=== PATIENT | female | born 1950 | race African-American/Black ===

== ENCOUNTER 2016-07-10 12:04 | Emergency (ER) | payer MEDICARE, OTHER ==
[~2016-07-10] VITALS: Ht 162.6 cm; Wt 52.2 kg
[~2016-07-10 12:04] MED LIST: IBUPROFEN200 M2 ORAL; METHADONE HCL5 MG PO; NORCO 5-325 TA1 EACH ORAL; OMEPRAZOLE20 M2 ORAL; TRAMADOL HCL50 MG ORAL; VERAPAMIL ER240 MG ORAL
--- NOTE | 2016-07-10 13:03 | Emergency Room Report ---
History of Present Illness General Chief Complaint: Abdominal Pain Source: Patient, Medical Record (NARAYAN NAYLOR D.O.) Present Illness HPI Patient presents with complaints of right flank pain that started possibly 7 days ago Now several days ago she reports of the pain on the right side has resolved however patient felt discomfort in the left flank area Denies any dysuria frequency denies any fevers or chills denies any fall or trauma while attending to sit down the patient has increased discomfort standing resolve some of the pain (NARAYAN NAYLOR D.O.) Allergies: Coded Allergies: No Known Allergies (Verified , 04/19/07) Patient History Past Medical History: see triage record Pertinent Family History: none Reviewed Nursing Documentation: PMH: Agreed, PSxH: Agreed (NARAYAN NAYLOR D.O.) Nursing Documentation-PMH Hx Hypertension: Yes Hx Asthma: Yes Hx Cancer: No Hx Gastrointestinal Problems: No Hx Neurological Problems: No (NARAYAN NAYLOR D.O.) Review of Systems All Other Systems: negative except mentioned in HPI (NARAYNA NAYLOR D.O.) Physical Exam Vital Signs Date Time Temp Pulse Resp B/P Pulse Ox O2 Delivery O2 Flow Rate FiO2 07/10/16 12:32 98.2 68 16 130/86 99 Room Air Sp02 EP Interpretation: reviewed, normal General Appearance: well appearing, no apparent distress Head: normocephalic, atraumatic Eyes: bilateral eye EOMI, bilateral eye PERRL ENT: hearing grossly normal, normal pharynx, TMs + canals normal, uvula midline Neck: full range of motion, supple, no meningismus, no bony tend Respiratory: lungs clear, normal breath sounds, no rhonchi, no respiratory distress, no retraction, no accessory muscle use Cardiovascular #1: normal peripheral pulses, regular rate, rhythm, no edema, no gallop, no JVD, no murmur Gastrointestinal: normal bowel sounds, non tender, soft, no mass, no organomegaly, non-distended, no guarding, no hernia, no pulsatile mass, no rebound Genitourinary: no CVA tenderness Musculoskeletal: normal inspection, other - Severe scoliosis discomfort on palpation left flank area, Neurologic: oriented x3, responsive, plastic finisher III-XII nml as tested, motor strength/ tone normal, sensory intact Psychiatric: mood/affect normal Skin: normal color, no rash, warm/dry, palpation normal Lymphatic: normal inspection, no adenopathy (NARAYAN NAYLOR D.O.) Medical Decision Making Diagnostic Impression: Primary Impression: Abdominal pain Additional Impressions: Abnormal liver function tests Hypokalemia ER Course See Dr. Aguilar note for full history of present illness. The patient presented for flank pain. Laboratory testing showed evidence of elevated alkaline phosphatase as well as hypokalemia. A an abdominal ultrasound was ordered which patient refused. Patient was noted to be awake alert and capable of refusal. The patient did not appear to be any acute distress however this may represent some gallbladder obstruction. Patient stated she did not want to be admitted to hospital and wanted to leave.The patient was advised risk benefits alternatives of leaving AGAINST MEDICAL ADVICE and he indicated understanding and all questions are answered patient still continued want to leave and signed AGAINST MEDICAL ADVICE. Despite risks including but not limited to disability and worsening of current lifestyle. Patient was advised to return at anytime. Labs Test 07/10/16 13:08 07/10/16 14:00 Urine Color Yellow Urine Appearance Clear Urine pH 6.5 (4.5-8.0) Urine Specific [place] 1.010 (1.005-1.035) Urine Protein 2+ (NEGATIVE) Urine Glucose (UA) Negative (NEGATIVE) Urine Ketones Negative (NEGATIVE) Urine Occult Blood 1+ (NEGATIVE) Urine Nitrite Negative (NEGATIVE) Urine Bilirubin Negative (NEGATIVE) Urine Urobilinogen 1 MG/DL (0.0-1.0) Urine Leukocyte Esterase 3+ (NEGATIVE) Urine RBC 2-4 /HPF (0 - 2) Urine WBC 2-4 /HPF (0 - 2) Urine Squamous Epithelial Cells Few /LPF (NONE/OCC) Urine Bacteria Moderate /HPF (NONE) White Blood Count 5.3 K/UL (4.8-10.8) Red Blood Count 4.20 M/UL (4.20-5.40) Hemoglobin 13.8 G/DL (12.0-16.0) Hematocrit 44.3 % (37.0-47.0) Mean Corpuscular Volume 106 FL (80-99) Mean Corpuscular Hemoglobin 33.0 PG (27.0-31.0) Mean Corpuscular Hemoglobin Concent 31.2 G/DL (32.0-36.0) Red Cell Distribution Width 12.0 % (11.6-14.8) Platelet Count 260 K/UL (150-450) Mean Platelet Volume 7.2 FL (6.5-10.1) Neutrophils (%) (Auto) 44.5 % (45.0-75.0) Lymphocytes (%) (Auto) 42.7 % (20.0-45.0) Monocytes (%) (Auto) 9.7 % (1.0-10.0) Eosinophils (%) (Auto) 2.0 % (0.0-3.0) Basophils (%) (Auto) 1.3 % (0.0-2.0) Sodium Level 136 mEQ/L (135-145) Potassium Level 2.5 mEQ/L (3.4-4.9) Chloride Level 97 mEQ/L (98-107) Carbon Dioxide Level 21 mEQ/L (20-30) Anion Gap 18 (5-15) Blood Urea Nitrogen 20 mg/dL (7-23) Creatinine 1.2 mg/dL (0.5-0.9) Estimat Glomerular Filtration Rate 54.7 mL/min (>60) Glucose Level 131 mg/dL (74-106) Calcium Level 9.6 mg/dL (8.6-10.2) Total Bilirubin 0.4 mg/dL (0.0-1.2) Aspartate Amino Transf (AST/SGOT) 73 U/L (5-40) Alanine Aminotransferase (ALT/SGPT) 50 U/L (3-33) Alkaline Phosphatase 108 U/L (35-104) Total Protein 8.5 g/dL (6.6-8.7) Albumin 3.9 g/dL (3.5-5.2) Globulin 4.6 g/dL Albumin/Globulin Ratio 0.8 (1.0-2.7) Lipase 27 U/L (< 60) (Cisco Ayers) Last Vital Signs Date Time Temp Pulse Resp B/P Pulse Ox O2 Delivery O2 Flow Rate FiO2 07/10/16 12:32 98.2 68 16 130/86 99 Room Air (NARAYAN NAYLOR D.Liz) Status: unchanged (Cisco Ayers) Disposition: AGAINST MEDICAL ADVICE Condition: Stable Scripts Nitrofurantoin Monohyd/M-Cryst* (MACROBID 100 MG*) 100 Mg Capsule 100 MG ORAL EVERY 12 HOURS for 7 Days, CAP Prov: NARAYAN NAYLOR D.O. 07/10/16 NARAYAN NAYLOR D.O. Jul 10, 2016 13:03 Cisco Ayers Jul 10, 2016 14:55
[2016-07-10 13:27] LABS: APPEARANCE,URINE CLEAR; KETONES,URINE NEGATIVE (NEGATIVE); LEUKOCYTE ESTERASE ,URINE 3+ (NEGATIVE); NITRITE,URINE NEGATIVE (NEGATIVE); PH,URINE 6.5 (4.5-8.0); PROTEIN,URINE 2+ (NEGATIVE); UROBILINOGEN,URINE 1 MG/DL (0.0-1.0)
[2016-07-10 13:33] LABS: BACTERIA,URINE MODERATE /HPF; SQUAMOUS EPITHELIAL CELL,UR FEW /LPF (NONE/OCC)
[2016-07-10] MEDS ORDERED: NITROFURANTOIN100 M2 ORAL (13:44)
[2016-07-10 14:17] LABS: BASOPHILS % (AUTO) 1.3 % (0.0-2.0); LYMPHOCYTES % (AUTO) 42.7 % (20.0-45.0); MEAN CORPUSCULAR HGB CONC 31.2 G/DL (32.0-36.0); MEAN CORPUSCULAR VOLUME 106 FL (80-99); MEAN PLATELET VOLUME 7.2 FL (6.5-10.1); MONOCYTES % (AUTO) 9.7 % (1.0-10.0); NEUTROPHILS % (AUTO) 44.5 % (45.0-75.0); PLATELET COUNT 260 K/UL (150-450); WHITE BLOOD COUNT 5.3 K/UL (4.8-10.8)
[2016-07-10 14:26] LABS: ALBUMIN/GLOBULIN RATIO 0.8 (1.0-2.7); CALCIUM 9.6 mg/dL (8.6-10.2); CREATININE 1.2 mg/dL (0.5-0.9); GLOMERULAR FILTRATION RATE 54.7 mL/min (>60); TOTAL PROTEIN 8.5 g/dL (6.6-8.7)
[2016-07-10 14:34] LABS: POTASSIUM 2.5 mEQ/L (3.4-4.9)
[2016-07-10 15:00] VITALS: BP 130/86
== END 2016-07-10 15:00 | disposition left against medical advice (07) ==
LOC: EMR 13:09
DX: R10.9 Unspecified abdominal pain (principal); Z53.21 Procedure and treatment not carried out due to patient leaving prior to being seen by health care provider; R79.89 Other specified abnormal findings of blood chemistry; E87.6 Hypokalemia
CPT/HCPCS: 36415; 80053; 81003; 83690; 85025; 87086; 87181; 99283; J8499

== ENCOUNTER 2016-10-14 10:16 | Inpatient (IN) | payer MEDICARE, OTHER ==
[~2016-10-14] VITALS: Ht 167.6 cm; Wt 49.9 kg
[~2016-10-14 10:16] MED LIST changes: +NITROFURANTOIN100 M2 ORAL
--- NOTE | 2016-10-14 10:36 | Emergency Room Report ---
History of Present Illness General Chief Complaint: Nausea, Vomiting, and Diarrhea Source: Patient, Family Member, EMS Present Illness HPI Presents with family for a week her deterioration with diarrhea and vomiting. He states it's diarrheas been brown in color and there's been no blood. She's been unable to take her medications including methadone 3 mg. This is a laceration days it she's not kept down any medication. The family denies any fevers or chills. She was hospitalized a year ago in July and had a visiting nurse that ended in October (last year). She's been unable to gain back the weight that she had before the hospitalization. At that time she had a similar presentation with diarrhea and vomiting. They're uncertain what the diagnosis was. Her own physician recently ran some liver function tests and they are uncertain of the results. Patient denies any pain including chest pain abdominal pain headache extremity pain at this time. Limited history due to poor answering. Allergies: Coded Allergies: No Known Allergies (Verified , 04/19/07) Patient History Limited by: medical condition Past Medical History: see triage record Social History Narrative At home Last Menstrual Period: n/a Reviewed Nursing Documentation: PMH: Agreed, PSxH: Agreed Nursing Documentation-PMH Hx Hypertension: Yes Hx Asthma: Yes Hx Cancer: No Hx Gastrointestinal Problems: No Hx Neurological Problems: No Hx Cerebrovascular Accident: Yes - july 2015 Review of Systems All Other Systems: limited Physical Exam Vital Signs Date Time Temp Pulse Resp B/P Pulse Ox O2 Delivery O2 Flow Rate FiO2 10/14/16 10:26 98.1 96 16 100 Room Air Sp02 EP Interpretation: reviewed, normal General Appearance: no apparent distress, GCS 15, thin - cachectic, Chronically Ill Head: normocephalic Eyes: bilateral eye PERRL, bilateral eye normal inspection ENT: dry mucus membranes - poor dentition Neck: supple Respiratory: lungs clear, normal breath sounds Cardiovascular #1: regular rate, rhythm Cardiovascular #2: 2+ radial (R) Gastrointestinal: normal inspection, normal bowel sounds, non tender, no mass, scaphoid Musculoskeletal: back normal, gait/station normal, normal range of motion Neurologic: alert, motor strength/tone normal, DTRs symmetric, sensory intact, oriented - X1 Psychiatric: depressed affect Skin: warm/dry, other - poor turgor Medical Decision Making Diagnostic Impression: Primary Impression: Failure to thrive Qualified Codes: R62.7 - Adult failure to thrive Additional Impressions: Hypokalemia Renal insufficiency UTI (urinary tract infection) Qualified Codes: N30.00 - Acute cystitis without hematuria ER Course The patient presents with vomiting and diarrhea which worsened over the last several days. She also has failure to thrive. Differential includes dehydration, C. difficile colitis, electrolyte abnormalities, occult infection, liver failure and encephalopathy. There's a nonfocal neurologic exam at this time and CT scan is not indicated. Labs EKG and chest x-ray will be obtained. The patient will receive IV hydration. EKG is unremarkable. Labs are significant for critical hypokalemia. In addition the patient has renal insufficiency. She also has pyuria. Potassium replacement ordered to start to be replaced. The patient was discussed with Dr. Dorman who recommended I speak with Dr. Duong for transferring the patient to [facility]. He accepted the patient and she is stable for transfer. In addition to that the patient will receive antibiotics for the bladder infection. Discussed with Dr. Stewart who accepts the patient as [place] does not have beds. Patient improved with IV hydration, potassium and antibiotics. Laboratory Tests Test 10/14/16 10:20 10/14/16 11:00 White Blood Count 10.2 K/UL (4.8-10.8) Red Blood Count 4.38 M/UL (4.20-5.40) Hemoglobin 14.0 G/DL (12.0-16.0) Hematocrit 42.2 % (37.0-47.0) Mean Corpuscular Volume 96 FL (80-99) Mean Corpuscular Hemoglobin 31.9 PG (27.0-31.0) H Mean Corpuscular Hemoglobin Concent 33.1 G/DL (32.0-36.0) Red Cell Distribution Width 13.0 % (11.6-14.8) Platelet Count 310 K/UL (150-450) Mean Platelet Volume 7.2 FL (6.5-10.1) Neutrophils (%) (Auto) 68.8 % (45.0-75.0) Lymphocytes (%) (Auto) 18.0 % (20.0-45.0) L Monocytes (%) (Auto) 12.2 % (1.0-10.0) H Eosinophils (%) (Auto) 0.3 % (0.0-3.0) Basophils (%) (Auto) 0.7 % (0.0-2.0) Prothrombin Time 11.8 SEC (9.30-11.50) H Prothrombin Time INR 1.1 (0.9-1.1) PTT 34 SEC (23-33) H Sodium Level 137 mEQ/L (135-145) Potassium Level 2.7 mEQ/L (3.4-4.9) *L Chloride Level 106 mEQ/L (98-107) Carbon Dioxide Level 14 mEQ/L (20-30) L Anion Gap 17 (5-15) H Blood Urea Nitrogen 38 mg/dL (7-23) H Creatinine 1.2 mg/dL (0.5-0.9) H Estimate Glomerular Filtration Rate 54.7 mL/min (>60) Glucose Level 112 mg/dL (74-106) H Lactic Acid Level 1.50 mmol/L (0.66-2.22) Calcium Level 12.8 mg/dL (8.6-10.2) H Total Bilirubin 1.4 mg/dL (0.0-1.2) H Direct Bilirubin 0.5 mg/dL (0.1-0.3) H Aspartate Amino Transferase (AST) 53 U/L (5-40) H Alanine Aminotransferase (ALT) 31 U/L (3-33) Alkaline Phosphatase 72 U/L (35-104) Ammonia 45 umol/L (11-51) Total Creatine Kinase 54 U/L (26-140) Troponin I < 0.30 ng/mL (<=0.30) Pro-B-Type Natriuretic Peptide 3133 pg/mL (0-125) H Total Protein 9.3 g/dL (6.6-8.7) H Albumin 3.8 g/dL (3.5-5.2) Globulin 5.5 g/dL Albumin/Globulin Ratio 0.6 (1.0-2.7) L Lipase 37 U/L (< 60) Salicylates Level < 1 mg/dL (10-30) L Acetaminophen Level < 10 ug/mL (10-30) L Serum Alcohol < 10 mg/dL Urine Color Yellow Urine Appearance Turbid Urine pH 6 (4.5-8.0) Urine Specific [place] 1.010 (1.005-1.035) Urine Protein 3+ (NEGATIVE) H Urine Glucose (UA) Negative (NEGATIVE) Urine Ketones Negative (NEGATIVE) Urine Occult Blood 3+ (NEGATIVE) H Urine Nitrite Negative (NEGATIVE) Urine Bilirubin Negative (NEGATIVE) Urine Urobilinogen 1 MG/DL (0.0-1.0) H Urine Leukocyte Esterase 3+ (NEGATIVE) H Urine RBC 5-10 /HPF (0 - 2) H Urine WBC 40-60 /HPF (0 - 2) H Urine Squamous Epithelial Cells Few /LPF (NONE/OCC) Urine Bacteria Many /HPF (NONE) H Urine Opiates Screen Negative (NEGATIVE) Urine Barbiturates Screen Negative (NEGATIVE) Phencyclidine (PCP) Screen Negative (NEGATIVE) Urine Amphetamines Screen Negative (NEGATIVE) Urine Benzodiazepines Screen Negative (NEGATIVE) Urine Cocaine Screen Negative (NEGATIVE) Urine Marijuana (THC) Screen Negative (NEGATIVE) EKG Diagnostic Results Rate: normal Rhythm: NSR ST Segments: no acute changes Rhythm Strip Diag. Results EP Interpretation: yes Rhythm: NSR, no PVC's, no ectopy Chest X-Ray Diagnostic Results Chest X-Ray Diagnostic Results : Chest X-Ray Ordered: Yes # of Views/Limited/Complete: 1 View Indication: Other EP Interpretation: Yes Interpretation: no consolidation, no effusion, no pneumothorax, other - ioncreased R hilum Impression: Other Interpreting ER Provider: Electronically signed by Donnie Werner MD Last Vital Signs Date Time Temp Pulse Resp B/P Pulse Ox O2 Delivery O2 Flow Rate FiO2 10/14/16 15:30 97.8 75 18 132/64 98 Room Air Status: improved Disposition: ADMITTED INPATIENT Condition: Serious Donnie Werner M.D. Oct 14, 2016 10:36
[2016-10-14] MEDS ORDERED: METHADONE H5 MG/5 M1 PO (11:00)
[2016-10-14 11:17] LABS: BASOPHILS % (AUTO) 0.7 % (0.0-2.0); EOSINOPHILS % (AUTO) 0.3 % (0.0-3.0); MEAN CORPUSCULAR HEMOGLOBIN 31.9 PG (27.0-31.0); MEAN CORPUSCULAR HGB CONC 33.1 G/DL (32.0-36.0); MEAN CORPUSCULAR VOLUME 96 FL (80-99); MEAN PLATELET VOLUME 7.2 FL (6.5-10.1); MONOCYTES % (AUTO) 12.2 % (1.0-10.0); NEUTROPHILS % (AUTO) 68.8 % (45.0-75.0); PLATELET COUNT 310 K/UL (150-450); RED BLOOD COUNT 4.38 M/UL (4.20-5.40); WHITE BLOOD COUNT 10.2 K/UL (4.8-10.8)
[2016-10-14 11:31] LABS: TROPONIN I < 0.30 ng/mL (<=0.30)
[2016-10-14 11:33] LABS: ACETAMINOPHEN < 10 ug/mL (10-30); ALANINE AMINOTRANSFERASE 31 U/L (3-33); ALBUMIN/GLOBULIN RATIO 0.6 (1.0-2.7); ALCOHOL < 10 mg/dL; ANION GAP 17 (5-15); ASPARTATE AMINO TRANSFERASE 53 U/L (5-40); CALCIUM 12.8 mg/dL (8.6-10.2); CARBON DIOXIDE 14 mEQ/L (20-30); CHLORIDE 106 mEQ/L (98-107); CREATININE 1.2 mg/dL (0.5-0.9); GLOMERULAR FILTRATION RATE 54.7 mL/min (>60); HEMOLYSIS 91; LIPASE 37 U/L (< 60); POTASSIUM 2.7 mEQ/L (3.4-4.9); SODIUM 137 mEQ/L (135-145); TOTAL PROTEIN 9.3 g/dL (6.6-8.7)
[2016-10-14 11:46] LABS: INR 1.1 (0.9-1.1); PROTHROMBIN TIME 11.8 SEC (9.30-11.50)
[2016-10-14 11:53] LABS: AMMONIA 45 umol/L (11-51); BILIRUBIN,DIRECT 0.5 mg/dL (0.1-0.3)
[2016-10-14 12:16] LABS: APPEARANCE,URINE TURBID; KETONES,URINE NEGATIVE (NEGATIVE); LEUKOCYTE ESTERASE ,URINE 3+ (NEGATIVE); NITRITE,URINE NEGATIVE (NEGATIVE); PH,URINE 6 (4.5-8.0); PROTEIN,URINE 3+ (NEGATIVE); UROBILINOGEN,URINE 1 MG/DL (0.0-1.0)
[2016-10-14 12:45] LABS: BACTERIA,URINE MANY /HPF; SQUAMOUS EPITHELIAL CELL,UR FEW /LPF (NONE/OCC); WBC,URINE 40-60 /HPF (0 - 2)
[2016-10-14] MEDS ORDERED: cefTRIAXone 1 GM in NS 55 ML IVPB ONE (13:00)
--- NOTE | 2016-10-14 14:19 | Diagnostic Imaging Report ---
Indication: Dyspnea Comparison: 01/13/10 A single view chest radiograph was obtained. Findings: Lungs are clear. Cardiomegaly is present. Aorta is ectatic. Bones are osteopenic. Scoliosis noted. Impression: No acute disease
[2016-10-14 14:38] VITALS: BP 160/97
[2016-10-14 15:30] VITALS: BP 132/64
[2016-10-14 21:26] VITALS: BP 158/100
[2016-10-14 22:33] VITALS: BP 133/78
[2016-10-14 22:58] VITALS: BP 133/78
--- NOTE | 2016-10-15 11:45 | History and Physical Report ---
DATE OF ADMISSION: 10/14/2016 HISTORY OF PRESENT ILLNESS: This is a 65-year-old female, who came into the hospital with diarrhea and vomiting. She reported liquid stools. No blood. The patient is taking methadone at home. The patient denies fever or chills. The patient reports a prior history of hypertension, respiratory issues possibly asthma, and she also had a CVA. MEDICATIONS: Her list of medications in the chart include methadone only. In the hospital, the patient received hydralazine, Rocephin, potassium, Zofran, and normal saline. ALLERGIES: None reported. REVIEW OF SYSTEMS: The patient admits to having nausea and diarrhea. Denies any headaches, hematemesis, melena, hematochezia, night sweats or weight loss. PHYSICAL EXAMINATION: GENERAL: Reveals a 65-year-old female. VITAL SIGNS: Blood pressure 130/70, heart rate 74, respirations 18, she is afebrile, and O2 97% on room air. HEENT: Unremarkable. CHEST: Shows clear breath sounds bilaterally. ABDOMEN: Soft. EXTREMITIES: There is no edema. NEUROLOGIC: Nonfocal. LABORATORY AND DIAGNOSTIC DATA: Lab testing shows normal CBC and BMP. Potassium is 2.7, but this is corrected. Creatinine 1.2. Coagulations are negative. Toxicology is negative. Urinalysis shows multiple WBCs. IMPRESSION: 1. Urinary tract infection. 2. Failure to thrive . 3. Chronic pain. 4. Hypokalemia. DISCUSSION: The [place] [facility] [place] but there was a lack of bed at that time for which she has been admitted to [facility], I will admit, continue antibiotics, replace potassium, check labs in the morning. If however bed becomes available in [place], the patient will be transferred to there for continue of care. Denny Stewart M.D. DR: LAURI JOB#: [id number] CC:
--- NOTE | 2016-10-15 15:40 | Discharge Summary ---
Discharge Summary Hospital Course Date of Admission Oct 14, 2016 at 13:36 Date of Discharge Oct 14, 2016 at 23:13 Admitting Diagnosis failure to thrive EMELI Gambino is a 65 year old female who was admitted on Oct 14, 2016 at 13: 36 for Failure To Thrive Hospital Course [id number] Discharge Discharge Disposition Patient was discharged to [facility] Discharge Diagnoses: Aisha Sotomayor NP Oct 15, 2016 15:40
--- NOTE | 2016-10-16 01:46 | Discharge Summary 2 SIG ---
DATE OF ADMISSION: 10/14/2016 DATE OF DISCHARGE: 10/14/2016 BRIEF HOSPITAL COURSE: The patient is a 65-year-old female, who came into the hospital with diarrhea and vomiting, reported liquid stools, but no blood. She is taking methadone at home. Denies fever and chills. She has a history of hypertension, respiratory issues, possibly asthma, and also had CVA. At ED, the patient was given IV hydration. Laboratories showed renal insufficiency and hypokalemia, potassium level 2.3. Potassium replacement was given and was started on IV antibiotics. The patient was planned transfer to [facility], however, there was no bed available and the patient was admitted to medical floor for urinary tract infection, failure to thrive, chronic pain, and hypokalemia. She was eventually transferred to [place]. DISPOSITION: The patient was transferred to [facility]. FINAL DIAGNOSES: 1. Urinary tract infection. 2. Failure to thrive. 3. Chronic pain. 4. Hypokalemia. Denny Stewart M.D. I have been assigned to dictate discharge summary on this account and I was not involved in the patient's management. Aisha Sotomayor N.P. DR: RADHA JOB#: [id number] CC: ABRAN
== END 2016-10-14 23:13 | disposition short-term general hospital (02) | DRG 463 ==
LOC: EMR 11:04 → 4W 13:36 → EDBEDREQ 15:46
DX: N39.0 Urinary tract infection, site not specified (principal); R62.7 Adult failure to thrive; I10 Essential (primary) hypertension; E87.6 Hypokalemia; J45.909 Unspecified asthma, uncomplicated; G89.29 Other chronic pain; Z86.73 Personal history of transient ischemic attack (TIA), and cerebral infarction without residual deficits
CPT/HCPCS: 36415; 71010; 80053; 80300; 80329; 81003; 82140; 82248; 82550; 83605; 83690; 83880; 84484; 85025; 85610; 85730; 87040; 87086; 87181; 93005; J2405

== ENCOUNTER 2017-08-06 19:47 | Inpatient (IN) | payer MEDICARE, OTHER ==
[~2017-08-06] VITALS: Ht 162.6 cm; Wt 51.3 kg
[~2017-08-06 19:47] MED LIST changes: +METHADONE H5 MG/5 M1 PO
[2017-08-06] MEDS ORDERED: Naloxone 1mg/ml 2ml IVP ONE (20:15)
[2017-08-06 21:00] VITALS: BP_SYST 124; BP_SYST 167; BP_DIAS 91; BP_DIAS 94
[2017-08-06 22:00] VITALS: BP 189/99
[2017-08-06 23:00] VITALS: BP 192/100
[2017-08-06 23:15] LABS: BASOPHILS % (AUTO) 0.9 % (0.0-2.0); HEMOGLOBIN 14.9 G/DL (12.0-16.0); LYMPHOCYTES % (AUTO) 10.4 % (20.0-45.0); MEAN CORPUSCULAR VOLUME 99 FL (80-99); MONOCYTES % (AUTO) 5.3 % (1.0-10.0); NEUTROPHILS % (AUTO) 83.3 % (45.0-75.0); PLATELET COUNT 172 K/UL (150-450); RED BLOOD COUNT 4.55 M/UL (4.20-5.40); RED CELL DISTRIBUTION WIDTH 11.1 % (11.6-14.8)
--- NOTE | 2017-08-06 23:19 | Emergency Room Report ---
History of Present Illness General Chief Complaint: Substance Abuse Source: Patient, EMS (JACLYN REESE D.O.) Present Illness HPI This patient presents by EMS. Per EMS, the patient overdosed on her methadone. She did receive Narcan en route. She did arouse and wake up and was able to state her name. On my evaluation, the patient is alert, vomiting and has profuse diarrhea. She is babbling nonsensically. She seems agitated. There is no family or other person with her. I am unsure on the exact history. The patient is unable to give any understandable history. I'm unsure what dose of methadone she ingested. I'm unsure if this was a suicide attempt. No other history is available. (JACLYN REESE D.O.) Allergies: Coded Allergies: No Known Allergies (Verified , 04/19/07) Patient History Past Medical History: see triage record, HTN, asthma Past Surgical History: unable to obtain Pertinent Family History: unable to obtain Reviewed Nursing Documentation: PMH: Agreed; PSxH: Agreed (JACLYN REESE D.O. ) Nursing Documentation-PMH Past Medical History: No History, Except For Hx Hypertension: Yes Hx Asthma: Yes Hx Cancer: No Hx Gastrointestinal Problems: No Hx Cerebrovascular Accident: Yes - july 2015 (JACLYN REESE D.O.) Review of Systems All Other Systems: limited (JACLYN REESE D.O.) Physical Exam Vital Signs Date Time Temp Pulse Resp B/P (MAP) Pulse Ox O2 Delivery O2 Flow Rate FiO2 08/06/17 19:50 92 8 160/103 97 Room Air Sp02 EP Interpretation: reviewed, normal General Appearance: GCS 15, other - vomiting, agitated, uncontrollable diarrhea Head: normocephalic, atraumatic Eyes: bilateral eye normal inspection, bilateral eye PERRL ENT: hearing grossly normal, normal pharynx, no angioedema, normal voice Neck: full range of motion, supple/symm/no masses Respiratory: chest non-tender, lungs clear, normal breath sounds, no respiratory distress, no retraction, no accessory muscle use, speaking full sentences Cardiovascular #1: regular rate, rhythm, no edema Gastrointestinal: normal bowel sounds, non tender, soft, non-distended, no guarding, no rebound Rectal: deferred Musculoskeletal: back normal, gait/station normal, normal range of motion, non- tender Neurologic: alert, responsive, sensory intact, other - nonsensical speech, agitated, non-focal Psychiatric: anxious Skin: normal color, no rash, warm/dry, well hydrated (JACLYN REESE.Liz) Medical Decision Making Diagnostic Impression: Primary Impression: Methadone overdose ER Course This patient presented with altered mental status. Per report showed dose on methadone. She was given Narcan and had significant withdrawal symptoms. I was unable to get an understandable history. The patient's speech was nonsensical. I did obtain a CT of the head which was unremarkable. The patient is pending laboratory workup. When I reassessed the patient she is again sleepy. She does localize to pain and is maintaining her airway, so at this time, I did not re-dose Narcan. The patient is turned over to Dr. Ayers. She is still pending labs. Please see Dr. Ayers addendum. (JACLYN REESE.Liz) ER Course The patient was in for altered mental status. Patient was endorsed to me by Dr. Pascual see Dr. Pascual note for full history of present illness. Patient was given IV potassium for noted hypokalemia. CT of the head read by radiology showed no evidence of acute hemorrhage or CVA. Patient is given medications for elevated blood pressure. Dr. Gaetano Douglas was contacted for inpatient management due to covering physician for Dr. Stewart. Labs Test 08/06/17 22:41 08/06/17 23:30 White Blood Count 7.0 K/UL (4.8-10.8) Red Blood Count 4.55 M/UL (4.20-5.40) Hemoglobin 14.9 G/DL (12.0-16.0) Hematocrit 45.0 % (37.0-47.0) Mean Corpuscular Volume 99 FL (80-99) Mean Corpuscular Hemoglobin 32.8 PG (27.0-31.0) Mean Corpuscular Hemoglobin Concent 33.2 G/DL (32.0-36.0) Red Cell Distribution Width 11.1 % (11.6-14.8) Platelet Count 172 K/UL (150-450) Mean Platelet Volume 8.6 FL (6.5-10.1) Neutrophils (%) (Auto) 83.3 % (45.0-75.0) Lymphocytes (%) (Auto) 10.4 % (20.0-45.0) Monocytes (%) (Auto) 5.3 % (1.0-10.0) Eosinophils (%) (Auto) 0.0 % (0.0-3.0) Basophils (%) (Auto) 0.9 % (0.0-2.0) Sodium Level 142 MMOL/L (136-145) Potassium Level 2.4 MMOL/L (3.5-5.1) Chloride Level 107 MMOL/L (98-107) Carbon Dioxide Level 21 MMOL/L (21-32) Anion Gap 14 mmol/L (5-15) Blood Urea Nitrogen 27 mg/dL (7-18) Creatinine 1.2 MG/DL (0.55-1.30) Estimat Glomerular Filtration Rate 54.5 mL/min (>60) Glucose Level 124 MG/DL (74-106) Calcium Level 9.8 MG/DL (8.5-10.1) Total Bilirubin 0.7 MG/DL (0.2-1.0) Aspartate Amino Transf (AST/SGOT) 80 U/L (15-37) Alanine Aminotransferase (ALT/SGPT) 80 U/L (12-78) Alkaline Phosphatase 94 U/L (46-116) Total Creatine Kinase 75 U/L (26-308) Creatine Kinase MB 1.2 NG/ML (0.0-3.6) Creatine Kinase MB Relative Index 1.6 Troponin I 0.025 ng/mL (0.000-0.056) Total Protein 9.9 G/DL (6.4-8.2) Albumin 3.8 G/DL (3.4-5.0) Globulin 6.1 g/dL Albumin/Globulin Ratio 0.6 (1.0-2.7) Urine Color Pale yellow Urine Appearance Slightly cloudy Urine pH 7 (4.5-8.0) Urine Specific [place] 1.010 (1.005-1.035) Urine Protein 2+ (NEGATIVE) Urine Glucose (UA) Negative (NEGATIVE) Urine Ketones Negative (NEGATIVE) Urine Occult Blood 3+ (NEGATIVE) Urine Nitrite Positive (NEGATIVE) Urine Bilirubin Negative (NEGATIVE) Urine Urobilinogen Normal MG/DL (0.0-1.0) Urine Leukocyte Esterase 2+ (NEGATIVE) Urine RBC 2-4 /HPF (0 - 2) Urine WBC 10-15 /HPF (0 - 2) Urine Squamous Epithelial Cells Moderate /LPF (NONE/OCC) Urine Bacteria Many /HPF (NONE) Urine Opiates Screen Negative (NEGATIVE) Urine Barbiturates Screen Negative (NEGATIVE) Phencyclidine (PCP) Screen Negative (NEGATIVE) Urine Amphetamines Screen Negative (NEGATIVE) Urine Benzodiazepines Screen Negative (NEGATIVE) Urine Cocaine Screen Negative (NEGATIVE) Urine Marijuana (THC) Screen Negative (NEGATIVE) (Cisco Ayers) EKG Diagnostic Results Rate: normal Rhythm: NSR ST Segments: no acute changes (JACLYN REESE D.O.) Rhythm Strip Diag. Results EP Interpretation: yes Rate: 80's Rhythm: NSR, no PVC's, no ectopy (JACLYN REESE.Liz) CT/MRI/US Diagnostic Results CT/MRI/US Diagnostic Results : Imaging Test Ordered: CT head Impression No acute findings. (JACLYN REESE D.O.) Last Vital Signs Date Time Temp Pulse Resp B/P (MAP) Pulse Ox O2 Delivery O2 Flow Rate FiO2 08/06/17 19:50 92 8 160/103 97 Room Air (JACLYN REESE D.O.) Status: improved (Cisco Ayers) Disposition: ADMITTED INPATIENT Condition: Serious Referrals: NON PHYSICIAN (PCP) JACLYN REESE D.O. Aug 06, 2017 23:19 Cisco Ayers Aug 07, 2017 03:32
[2017-08-06 23:36] LABS: ALANINE AMINOTRANSFERASE 80 U/L (12-78); ALBUMIN 3.8 G/DL (3.4-5.0); ALBUMIN/GLOBULIN RATIO 0.6 (1.0-2.7); ALKALINE PHOSPHATASE 94 U/L (46-116); ANION GAP 14 mmol/L (5-15); ASPARTATE AMINO TRANSFERASE 80 U/L (15-37); BILIRUBIN,TOTAL 0.7 MG/DL (0.2-1.0); BLOOD UREA NITROGEN 27 mg/dL (7-18); CALCIUM 9.8 MG/DL (8.5-10.1); CARBON DIOXIDE 21 MMOL/L (21-32); CHLORIDE 107 MMOL/L (98-107); CKMB 1.2 NG/ML (0.0-3.6); CREATINE KINASE 75 U/L (26-308); CREATININE 1.2 MG/DL (0.55-1.30); SODIUM 142 MMOL/L (136-145)
[2017-08-06 23:38] LABS: POTASSIUM 2.4 MMOL/L (3.5-5.1)
[2017-08-06] MEDS ORDERED: Potassium Chloride 40 MEQ in Sodium Chloride 500ML 550 ML IVPB ONE (23:45)
[2017-08-07] VITALS (8 sets, daily range): BP systolic 145–192; BP diastolic 89–118
[2017-08-07 00:41] LABS: APPEARANCE,URINE SLIGHTLY CLOUDY; BILIRUBIN, URINE NEGATIVE (NEGATIVE); COLOR,URINE PALE YELLOW; GLUCOSE, URINE (UA) NEGATIVE (NEGATIVE); KETONES,URINE NEGATIVE (NEGATIVE); LEUKOCYTE ESTERASE ,URINE 2+ (NEGATIVE); NITRITE,URINE POSITIVE (NEGATIVE); PH,URINE 7 (4.5-8.0); PROTEIN,URINE 2+ (NEGATIVE); UROBILINOGEN,URINE NORMAL MG/DL (0.0-1.0)
[2017-08-07] MEDS ORDERED: Enalaprilat 2.5mg/2ml Inj IV ONE (02:45)
[2017-08-07] MEDS ORDERED: cefTRIAXone 1 GM in D5W 55 ML IVPB ONE (03:30)
[2017-08-07] MEDS ORDERED: Norco 5mg/325mg tab ORAL PRN (09:00)
[2017-08-07] MEDS ORDERED: Milk of Magnesia 30ml Ud ORAL PRN (09:00)
[2017-08-07] MEDS ORDERED: traMADol 50mg tab ORAL PRN (09:00)
--- NOTE | 2017-08-07 10:10 | Diagnostic Imaging Report ---
Indication: Altered mental status Technique: Contiguous 5 mm thick transaxial imaging of the head obtained in a Siemens Sensation [address] scanner. Soft tissue and bone windows generated. Automatic Exposure Control was utilized. Total Dose length Product (DLP): 1228.[address] Dose Index Volume (CTDIvol): 70.38 mGy Comparison: 12/24/2009 Findings: Mild, nonspecific, white matter hypoattenuation is noted throughout the brain consistent with chronic small vessel disease. There is no midline shift, edema, acute hemorrhage, mass effect, or abnormal extra-axial fluid collections. Bones and extra osseous soft tissues are unremarkable. Impression: No acute intracranial bleed, mass effect or edema. Nonspecific white matter hypoattenuation probably due to chronic small vessel disease. [facility] has communicated the preliminary results to the Emergency Department. Their findings are largely concordant with this report. The CT scanner at [facility] is accredited by the [employer] and the scans are performed using dose optimization techniques as appropriate to a performed exam including Automatic Exposure control.
--- NOTE | 2017-08-07 11:34 | Diagnostic Imaging Report ---
Indication: Dyspnea Comparison: 10/14/2016 A single view chest radiograph was obtained. Findings: No definite infiltrate or pulmonary vascular congestion identified. The heart is enlarged. The aorta is mildly enlarged consistent with atherosclerotic vascular disease. The bones are osteopenic. Impression: No acute disease
[2017-08-07] MEDS: Verapamil SR 240mg tab ORAL SCH (12:08)
[2017-08-07] MEDS: NS w/KCl 40mEq 1,000 ML IV SCH ×2 (12:08→20:00)
[2017-08-07 12:55] LABS: ANION GAP 10 mmol/L (5-15); BLOOD UREA NITROGEN 20 mg/dL (7-18); CALCIUM 9.7 MG/DL (8.5-10.1); CARBON DIOXIDE 23 MMOL/L (21-32); CHLORIDE 108 MMOL/L (98-107); POTASSIUM 3.7 MMOL/L (3.5-5.1); SODIUM 141 MMOL/L (136-145)
[2017-08-07] MEDS ORDERED: HEPARIN SO5000 UNIT2 SUBQ (13:24)
[2017-08-07] MEDS ORDERED: MILK OF MA400 MG/51 ORAL (13:24)
[2017-08-07] MEDS ORDERED: CIPROFLOXACIN500 M2 ORAL (13:24)
[2017-08-07] MEDS ORDERED: MYLANTA30 M1 PO (13:25)
[2017-08-07] MEDS ORDERED: CATAPRES0.1 MG ORAL ×2 (13:26→13:27)
[2017-08-07] MEDS ORDERED: AMBIEN10 M1 ORAL (13:27)
[2017-08-07] MEDS ORDERED: SODIUM CHLORIDE (13:28)
[2017-08-07] MEDS ORDERED: NORMAL SALINE IV (13:29)
[2017-08-07] MEDS ORDERED: Zolpidem 5mg tab ORAL PRN (21:00)
--- NOTE | 2017-08-07 21:15 | History and Physical Report ---
DATE OF ADMISSION: 08/06/2017 REASON FOR ADMISSION: Accidental overdose of methadone. HISTORY OF PRESENT ILLNESS: The patient is a 66-year-old female. The patient takes methadone at home and apparently took an excess. She denies any suicidal attempt. She is alert and oriented. She did receive Narcan in the emergency room and did improve. The patient is alert and was vomiting. She had profuse diarrhea as well. The patient is comfortable, awake, and alert at present. Case discussed with the ER physician. The patient is admitted for evaluation and management. The patient had no falls, no trauma, no head injury. PAST MEDICAL HISTORY: Notable for hypertension, asthma, methadone dependence, chronic pain and hypertension. MEDICATIONS: All reviewed and reconciled. ALLERGIES: All reviewed and reconciled. SOCIAL HISTORY: The patient is retired. She apparently lives independently. She is nonsmoker at present. FAMILY HISTORY: Otherwise noncontributory. REVIEW OF SYSTEMS: Otherwise negative with the exception of the above. PHYSICAL EXAMINATION: GENERAL: A well-developed female, appears somewhat older than stated age. VITAL SIGNS: Blood pressure 148/97, pulse 73, respirations 18, and temperature 97.7 degrees. The patient is on two liters nasal cannula. HEENT: Negative. NECK: Supple. No adenopathy. The patient is thin. LUNGS: With moderate breath sounds. No rhonchi or wheezes. CARDIAC: S1 and S2. Regular rate and rhythm without murmurs, rubs, or gallops. ABDOMEN: Soft, nontender, nondistended, and thin. EXTREMITIES: No cyanosis, clubbing, or edema. NEUROLOGIC: Appears to be grossly nonfocal, just diffusely weak. Alert and oriented x3 at present. LABORATORY DATA: Reviewed. Potassium is 2.4. AST and ALT elevated. CBC essentially negative. The toxicology screen essentially negative. The urine is notable for 10 to 15 white cells. IMPRESSION: 1. Methadone overdose accidental. 2. Evidence of hypokalemia, likely due to diarrhea and vomiting. 3. Cachexia. 4. Hypertension. 5. Asthma. RECOMMENDATIONS: Supportive care. Monitor clinically. The patient given Rocephin for possible UTI. We will add Cipro and obtain physical therapy evaluation and hope to stabilize. Replace potassium and monitor labs and recommend further. Gaetano Douglas M.D. DR: Donald JOB#: [id number] CC:
[2017-08-07] MEDS: Heparin 5000 units/ml inj SUBQ SCH (21:28)
[2017-08-08] VITALS: BP 143/61
[2017-08-08 04:00] VITALS: BP 141/71
[2017-08-08] MEDS: NS w/KCl 40mEq 1,000 ML IV SCH ×2 (06:13→16:45)
--- NOTE | 2017-08-08 07:16 | General Progress Note ---
Assessment/Plan Assessment/Plan IMPRESSION: 1. Methadone overdose accidental. 2. Evidence of hypokalemia, likely due to diarrhea and vomiting. improved 3. Cachexia. 4. Hypertension. 5. Asthma. PLAN monitor overnight dc planning if stable case management to assist with safe discharge maintain hydration and repeat BMP in am urine culture impression, plan, and exam edited and reviewed in detail care discussed with RN Subjective Allergies: Coded Allergies: No Known Allergies (Verified , 04/19/07) Subjective refused transfer to [facility] improved K better Objective Last 24 Hour Vital Signs Date Time Temp Pulse Resp B/P (MAP) Pulse Ox O2 Delivery O2 Flow Rate FiO2 08/08/17 04:00 97.0 66 20 141/71 99 Nasal Cannula 2.0 97.0 08/08/17 04:00 69 08/08/17 00:00 97.0 68 20 143/61 100 Nasal Cannula 2.0 97.0 08/08/17 00:00 55 08/07/17 22:40 151/98 08/07/17 20:00 97.3 73 20 151/98 97 Nasal Cannula 2.0 97.3 08/07/17 20:00 65 08/07/17 19:10 Nasal Cannula 2.0 28 08/07/17 19:10 97 Nasal Cannula 2.0 28 08/07/17 16:00 65 08/07/17 16:00 96.6 68 18 149/89 100 Nasal Cannula 2.0 96.6 08/07/17 12:08 73 148/97 08/07/17 12:00 97.8 71 18 145/95 99 2.0 97.8 08/07/17 12:00 76 08/07/17 08:00 77 08/07/17 08:00 97.7 73 18 148/97 99 2.0 97.7 08/07/17 07:41 98 Nasal Cannula 2.0 28 08/07/17 07:41 Nasal Cannula 2.0 28 Intake and Output 08/07/17 08/08/17 19:00 07:00 Intake Total 950 ml Output Total 300 ml Balance 950 ml -300 ml Intake Oral 950 ml Output Urine Total 300 ml # Voids 4 Laboratory Tests 08/07/17 12:15: Sodium Level 141, Potassium Level 3.7#, Chloride Level 108H, Carbon Dioxide Level 23, Anion Gap 10, Blood Urea Nitrogen 20H, Creatinine 1.0, Estimat Glomerular Filtration Rate > 60, Glucose Level 86, Calcium Level 9.7 Height (Feet): 5 Height (Inches): 4.00 Weight (Pounds): 113 Objective GENERAL: A well-developed female, NAD HEENT: Negative. NECK: Supple. No adenopathy. The patient is thin. LUNGS: With moderate breath sounds. No rhonchi or wheezes. CARDIAC: S1 and S2. Regular rate and rhythm without murmurs, rubs, or gallops. ABDOMEN: Soft, nontender, nondistended, and thin. EXTREMITIES: No cyanosis, clubbing, or edema. NEUROLOGIC: Appears to be grossly nonfocal,diffusely weak. MARIANELA GONZALEZ Aug 08, 2017 07:16
[2017-08-08 08:00] VITALS: BP 160/93
[2017-08-08] MEDS: Verapamil SR 240mg tab ORAL SCH (08:32)
[2017-08-08] MEDS: Heparin 5000 units/ml inj SUBQ SCH ×2 (08:33→22:21)
[2017-08-08 12:00] VITALS: BP 151/93
[2017-08-08 16:00] VITALS: BP 140/93
--- NOTE | 2017-08-08 17:42 | Cardiology Report ---
APPROVED REPORT EKG Measurement Heart [id number] Normal sinus rhythm Biatrial enlargement Left ventricular hypertrophy with repolarization abnormality Prolonged QT Abnormal ECG
[2017-08-08 20:00] VITALS: BP 135/87
[2017-08-09] VITALS: BP 142/80
[2017-08-09] MEDS: NS w/KCl 40mEq 1,000 ML IV SCH ×2 (06:53→12:00)
[2017-08-09 08:00] VITALS: BP 149/93
[2017-08-09 09:02] VITALS: BP 149/93
[2017-08-09] MEDS: Verapamil SR 240mg tab ORAL SCH (09:02)
[2017-08-09] MEDS: Heparin 5000 units/ml inj SUBQ SCH (09:04)
--- NOTE | 2017-08-09 09:04 | Pulmonology Progress Note ---
Assessment/Plan Assessment/Plan IMPRESSION: 1. Methadone overdose accidental. 2. Evidence of hypokalemia, likely due to diarrhea and vomiting. improved 3. Cachexia. 4. Hypertension. 5. Asthma. PLAN DC home AddedLevaquin for UTI Subjective Interval Events: None Constitutional: Reports: no symptoms HEENT: Repors: no symptoms Respiratory: Reports: no symptoms Cardiovascular: Reports: no symptoms Gastrointestinal/Abdominal: Reports: no symptoms Allergies: Coded Allergies: No Known Allergies (Verified , 04/19/07) Objective Last 24 Hour Vital Signs Date Time Temp Pulse Resp B/P (MAP) Pulse Ox O2 Delivery O2 Flow Rate FiO2 08/09/17 08:50 Nasal Cannula 2.0 28 08/09/17 08:50 97 Nasal Cannula 2.0 28 08/09/17 08:00 97.3 69 20 149/93 95 Nasal Cannula 2.0 97.3 08/09/17 04:00 48 08/09/17 00:00 97.7 69 20 142/80 95 Nasal Cannula 2.0 97.7 08/09/17 00:00 60 08/08/17 20:10 Nasal Cannula 2.0 28 08/08/17 20:10 99 Nasal Cannula 2.0 28 08/08/17 20:00 98.0 72 18 135/87 95 Nasal Cannula 2.0 98.0 08/08/17 20:00 62 08/08/17 16:00 73 08/08/17 16:00 97.5 76 18 140/93 99 Nasal Cannula 2.0 97.5 08/08/17 12:00 97.2 83 18 151/93 98 Nasal Cannula 2.0 97.2 08/08/17 12:00 75 Intake and Output 08/08/17 08/09/17 19:00 07:00 Intake Total 1280 ml 500 ml Balance 1280 ml 500 ml Intake Oral 480 ml IV Total 800 ml 500 ml # Voids 4 1 # Bowel Movements 1 General Appearance: no acute distress HEENT: normocephalic Respiratory/Chest: chest wall non-tender, lungs clear Cardiovascular: normal peripheral pulses, normal rate Abdomen: normal bowel sounds Microbiology Date/Time Source Procedure Growth Status 08/06/17 23:30 Urine,Clean Catch Urine Culture - Preliminary Gram Negative Bacillus 1 Resulted Current Medications Medications (Trade) Dose Ordered Sig/Lokesh Route PRN Reason Start Time Stop Time Status Last Admin Dose Admin Acetaminophen (Tylenol) 650 mg Q4H PRN ORAL Mild Pain/Temp > 100.5 08/07/17 09:00 09/06/17 08:59 Acetaminophen/ Hydrocodone Bitart ([place] 5/325) 1 tab Q4H PRN ORAL Severe Breakthru Pain (>7) 08/07/17 09:00 08/14/17 08:59 Al Hydroxide/Mg Hydroxide (Mylanta) 30 ml Q4H PRN ORAL HEARTBURN 08/07/17 09:00 09/06/17 08:59 Ceftriaxone Sodium 1 gm/ Dextrose 55 ml @ 110 mls/hr Q24H IVPB 08/09/17 10:00 08/16/17 23:59 Ciprofloxacin (Cipro 250mg tab) 250 mg EVERY 12 HOURS ORAL 08/07/17 21:00 08/14/17 20:59 08/08/17 22:19 Clonidine HCl (Catapres Tab) 0.1 mg Q4H PRN ORAL SBP>150 08/07/17 09:00 09/06/17 08:59 08/07/17 22:40 Heparin Sodium (Porcine) (Heparin 5000 units/ml) 5,000 units EVERY 12 HOURS SUBQ 08/07/17 21:00 09/06/17 20:59 08/08/17 22:21 Ibuprofen (Advil) 200 mg Q6H PRN ORAL Moderate Pain (Pain Scale 4-6) 08/07/17 09:00 09/06/17 08:59 Magnesium Hydroxide (Mom) 30 ml DAILYPRN PRN ORAL Constipation 08/07/17 09:00 09/06/17 08:59 Methadone HCl (Methadone HCl) 5 mg DAILY ORAL 08/07/17 09:00 08/14/17 08:59 08/08/17 08:32 Pantoprazole (Protonix) 40 mg ACBREAKFAST ORAL 08/07/17 09:00 09/06/17 08:59 08/09/17 06:52 Sodium Chloride 1,000 ml @ 100 mls/hr Q10H IV 08/07/17 10:00 09/06/17 09:59 08/09/17 06:53 Tramadol HCl (Ultram) 50 mg Q6H PRN ORAL Severe Pain (Pain Scale 7-10) 08/07/17 09:00 08/14/17 08:59 Verapamil HCl (Calan SR) 240 mg DAILY ORAL 08/07/17 10:00 09/06/17 09:59 08/08/17 08:32 Zolpidem Tartrate (Ambien) 5 mg HSPRN PRN ORAL Insomnia 08/07/17 21:00 08/14/17 20:59 Denny Stewart MD Aug 09, 2017 09:04
[2017-08-09] MEDS ORDERED: LEVAQUIN500 MG ORAL ×2 (09:17→09:19)
[2017-08-09] MEDS ORDERED: cefTRIAXone 1gm/D5W 55ml IVPB SCH ×2 (10:00)
[2017-08-09 10:33] LABS: ANION GAP 7 mmol/L (5-15); BLOOD UREA NITROGEN 17 mg/dL (7-18); CALCIUM 9.5 MG/DL (8.5-10.1); CARBON DIOXIDE 23 MMOL/L (21-32); CHLORIDE 107 MMOL/L (98-107); CREATININE 1.2 MG/DL (0.55-1.30); POTASSIUM 3.4 MMOL/L (3.5-5.1); SODIUM 137 MMOL/L (136-145)
--- NOTE | 2017-08-10 10:45 | Discharge Summary ---
Discharge Summary Discharge Summary Discharge Summary DATE OF ADMISSION: 08/06/2017 DATE OF DISCHARGE: 08/09/2017 REASON FOR ADMISSION: 66 years old female with past medical history significant for hypertension, asthma, methadone dependency due to chronic pain, history of CVA, arthritis , brought for overdose on methadone. She received Narcan en route and apparently improved. Per paramedics, she woke up and was able to state her name. Upon evaluation in emergency department, patient was alert but was vomiting and had profuse diarrhea. Patient was babbling without making much sense. She appeared agitated. Vital signs were stable, except slightly elevated blood pressure, urinalysis with evidence of UTI. Urine tox screen was negative. CT of the head revealed no acute intracranial pathology. Chest x-ray revealed no acute cardiopulmonary pathology. Troponin was negative. EKG demonstrated normal sinus rhythm , no acute ischemic changes. Potassium 2.4. Potassium was repleted and antihypertensive was provided. Patient was admitted with diagnosis of methadone overdose, hypokalemia, hypertension, asthma, cachexia, urinary tract infection. HOSPITAL COURSE: Patient admitted to telemetry floor . Supportive care provided. Patient started on empiric antibiotic for UTI. Urine culture revealed gram-negative bacilli. Renal parameters and electrolytes were closely monitored, potassium was replaced , nephrotoxic were avoided. DVT and GI prophylaxis provided. Blood pressure was managed with verapamil and clonidine as needed. Blood pressure remained stable Fall precautions were maintained. Patient was working with physical therapist. Nutritional recommendations implemented in plan of care. Patient clinically improved and was stable for discharge home. FINAL DIAGNOSES: Methadone overdose, accidental. Hypokalemia ( secondary to diarrhea and vomiting) Urinary tract infection Hypertension Asthma Cachexia DISCHARGE MEDICATIONS: See Medication Reconciliation list. DISCHARGE INSTRUCTIONS: Patient was discharged home. Complete antibiotic course for urinary tract infection as outlined in medication reconciliation list. Counseled to carefully review dose of methadone before taken to avoid accidental overdose Follow up with primary care provider in one week. I have been assigned to dictate discharge summary for this account. I was not involved in the patient's management. Yoko Pollack NP ([place]) August 10, 2017 10:45
== END 2017-08-09 13:21 | disposition home or self-care (01) | DRG 812 ==
LOC: EDUNIT# 19:47 → EDBD 19:47 → EMR 21:40 → EDBEDREQ 23:01 → 2E 23:39 → EDBEDREQ 08-07 00:08
DX: T40.3X1A Poisoning by methadone, accidental (unintentional), initial encounter (principal); R64 Cachexia; I10 Essential (primary) hypertension; N39.0 Urinary tract infection, site not specified; E87.6 Hypokalemia; J45.909 Unspecified asthma, uncomplicated; Z86.73 Personal history of transient ischemic attack (TIA), and cerebral infarction without residual deficits
CPT/HCPCS: 36415; 70450; 71045; 80048; 80053; 80307; 81003; 82550; 82553; 84484; 85025; 87086; 87181; 93005; 94760; 96360; 99285; J2310; J2405